=== PATIENT | male | born 1975 | race Caucasian/White ===

== ENCOUNTER 2017-05-21 17:01 | Emergency (ER) | payer MEDICAID ==
[~2017-05-21] VITALS: Ht 170.2 cm; Wt 113.4 kg
[2017-05-21 17:08] VITALS: BP 156/88
--- NOTE | 2017-05-21 17:08 | NUR ---
PT KELLY FROM HOME TO ER BED 12. C/O BACK PAIN S/P SNEEZING TODAY. WAS AT [facility] FOR 5 DAYS AND WAS DISCHARGE YESTERDAY. GOWNED AND PLACED ON MONITOR. TACHYCARDIC OTHERWISE STABLE VITALS. AWAITING MD PATE.
--- NOTE | 2017-05-21 17:38 | NUR ---
I attempted to evaluate the patient, but, he was leaving as I was arriving at the bedside. Family was unhappy that they had to wait for 30 minutes. They stated they were going to [facility] because he was recently discharged from there. I encouraged the pt. to stay for a medical evaluation, but, they refused and LWBS.
== END 2017-05-21 17:50 | disposition left against medical advice (07) ==
LOC: ER 17:03
DX: Z53.21 Procedure and treatment not carried out due to patient leaving prior to being seen by health care provider (principal)
CPT/HCPCS: A4606; Z7610